=== PATIENT | male | born 1970 | race Caucasian/White ===

== ENCOUNTER 2017-02-23 12:17 | Inpatient (IN) | payer BC ==
[2017-02-23] MEDS ORDERED: RX INFO: IV CONTRAST WAS GIVEN 1 EACH MISC MISCELLANE PRN (14:56)
[2017-02-23 15:46] LABS: Basophils # (A) 0.1 k/uL (0-0.2); Basophils % (A) 0 %; CH 34.7; CHCM 35.1; Eosinophils # (A) 0.1 k/uL (0-0.7); Eosinophils % (A) 0 %; HCT 50.5 % (39.0-53.0); HDW 2.13; HGB 16.8 gm/dL (13.0-17.5); Luc # (Auto) 0.15; Luc % (Auto) 1; Lymphocytes # (A) 1.2 k/uL (1.0-4.8); Lymphocytes % (A) 6 %; MCHC 33.3 g/dL (31.0-37.0); MCV 99.3 fL (80.0-100.0); Mean Platelet Volume 7.5; Monocytes # (A) 0.9 k/uL (0-1.0); Monocytes % (A) 5 %; Neutrophils # (A) 17.7 k/uL (1.3-7.7); Neutrophils % (A) 88 %; RBC 5.09 m/uL (4.30-5.90); RDW 13.7 % (11.5-15.5); WBC (Perox) 19.79
[2017-02-23] MEDS ORDERED: methylPREDNISolone SOD SUCCI 125 MG/2 ML VIAL IV STA (15:47)
[2017-02-23 16:12] LABS: ALT 40 U/L (21-72); AST 18 U/L (17-59); Alkaline Phosphatase 56 U/L (38-126); Anion Gap 12 mmol/L; Blood Urea Nitrogen 15 mg/dL (9-20); Calcium 10.3 mg/dL (8.4-10.2); Carbon Dioxide 29 mmol/L (22-30); Chloride 102 mmol/L (98-107); Glucose 150 mg/dL (74-99); Non-African American GFR(MDRD) >60 (>60 ml/min/1.73 sqM); Potassium 3.7 mmol/L (3.5-5.1); Sodium 143 mmol/L (137-145); Total Bilirubin 0.8 mg/dL (0.2-1.3); Total Protein 6.5 g/dL (6.3-8.2)
[2017-02-23] MEDS: IPRATROPIUM-ALBUTEROL 3 ML NEB INHALATION SCH ×2 (16:28→20:38)
--- NOTE | 2017-02-23 17:25 | CT ---
EXAMINATION TYPE: CT chest angio for PE DATE OF EXAM: 02/23/2017 COMPARISON: NONE HISTORY: Shortness of breath. CT DLP: 318.30 mGycm. Automated exposure control for dose reduction was used. CONTRAST: CT Chest for pulmonary embolism performed with with IV Contrast, patient injected with 82 m L of Omnipaque 350. FINDINGS: LUNGS: The lungs are grossly clear, there is no concerning parenchymal mass or nodule identified. T here is no pleural effusion or pneumothorax seen. The tracheobronchial tree is patent. MEDIASTINUM: There is satisfactory enhancement of the pulmonary artery and its branches, there is no CT evidence for pulmonary embolism. There are no greater than 1 cm hilar or mediastinal lymph nodes. No pericardial effusion is seen. OTHER: No focal skeletal findings. Note is made of prominent gastric distention, etiology unclear. IMPRESSION: 1. NEGATIVE FOR PULMONARY EMBOLISM OR OTHER ACUTE CHEST PROCESS. 2. PROMINENT GASTRIC DISTENTION NOTED, ETIOLOGY UNCLEAR.
[2017-02-23] MEDS: NICOTINE 21MG/24HR PATCH TRANSDERM SCH (18:25)
[2017-02-23] MEDS: BUDESONIDE 1 MG/2 ML NEBU INHALATION SCH (20:38)
[2017-02-23] MEDS: ALPRAZolam 0.5 MG TAB PO SCH (21:55)
[2017-02-23] MEDS: AZITHROMYCIN 500 MG in SODIUM CHLORIDE 0.9% 250 ML IVPB SCH (21:56)
[2017-02-23] MEDS: methylPREDNISolone SOD SUCCI 125 MG/2 ML VIAL IV SCH (23:32)
[2017-02-24] MEDS: methylPREDNISolone SOD SUCCI 125 MG/2 ML VIAL IV SCH ×4 (06:12→23:03)
[2017-02-24] MEDS: IPRATROPIUM-ALBUTEROL 3 ML NEB INHALATION SCH ×4 (07:03→21:53)
[2017-02-24] MEDS: BUDESONIDE 1 MG/2 ML NEBU INHALATION SCH ×2 (07:03→21:53)
[2017-02-24] MEDS: ALPRAZolam 0.5 MG TAB PO SCH ×2 (08:21→20:37)
[2017-02-24] MEDS: MULTIVITAMINS, THERA 1 EACH TAB PO SCH (08:21)
[2017-02-24] MEDS: CYANOCOBALAMIN 500 MCG TAB PO SCH (08:22)
[2017-02-24] MEDS: VITAMIN A 10,000 UNIT CAPSULE PO SCH (08:22)
[2017-02-24 08:29] LABS: ALT 34 U/L (21-72); AST 19 U/L (17-59); Alkaline Phosphatase 78 U/L (38-126); Anion Gap 12 mmol/L; Blood Urea Nitrogen 16 mg/dL (9-20); Calcium 9.6 mg/dL (8.4-10.2); Carbon Dioxide 21 mmol/L (22-30); Chloride 104 mmol/L (98-107); Glucose 286 mg/dL (74-99); Non-African American GFR(MDRD) >60 (>60 ml/min/1.73 sqM); Potassium 4.3 mmol/L (3.5-5.1); Sodium 137 mmol/L (137-145); Total Bilirubin 0.4 mg/dL (0.2-1.3); Total Protein 6.1 g/dL (6.3-8.2)
[2017-02-24] MEDS: NICOTINE 21MG/24HR PATCH TRANSDERM SCH (09:46)
[2017-02-24 17:21] LABS: Glucose,Whole Blood 188 mg/dL (75-99)
[2017-02-24] MEDS: INSULIN LISPRO (humaLOG) 300 UNIT/3 ML VIAL SQ SCH ×2 (18:20→20:37)
[2017-02-24] MEDS: AZITHROMYCIN 500 MG in SODIUM CHLORIDE 0.9% 250 ML IVPB SCH (20:06)
[2017-02-24 20:16] LABS: Glucose,Whole Blood 184 mg/dL (75-99)
[2017-02-25] MEDS: methylPREDNISolone SOD SUCCI 125 MG/2 ML VIAL IV SCH ×4 (05:11→23:23)
--- NOTE | 2017-02-25 06:48 | HP ---
CHIEF COMPLAINT: Persistent shortness of breath now going on 3 weeks. This is a 46-year-old white male with well known established bronchial asthma that was admitted from my office after persistent encouraging for hospitalization with his asthma. He has been going on nearly 3 weeks with persistent intermittent shortness of breath before being admitted. He has a long-standing history of bronchial asthma. He has been treated on an outpatient basis with prednisone. He has been on 30 mg daily. He has been on updrafts of Combivent inhalers. He was on Levaquin at one period of time when he was having purulent tracheobronchitis now it is just a nonspecific clear to year phlegm. He has a longstanding past medical history of bronchial asthma. He has also had some BPH and anxiety neurosis. SOCIAL HISTORY: He is , lives with his and he has 2 daughters. He is unemployed at this period of time. Cigarette smoker up to 2 packs a day over 30 years. Alcohol occasionally. He does use recreational marijuana. His home medications have been that of: 1. Xanax 0.5 b.i.d. 2. Combivent inhaler 2 puffs up to 4 times a day. 3. Alupent updrafts up to 4 times a day. 4. Flovent inhaler 2 puffs in the morning 5. Flomax 0.4 mg daily. REVIEW OF SYSTEMS: CARDIOPULMONARY: He has been short of breath, coughs persistently over a 3- week period of time. He has had no chest pain. He has no orthopnea or paroxysmal nocturnal dyspnea. Persistent cough. He has been treated on outpatient basis for an antibiotic. GI: No hematemesis, melena, hematochezia. : He has had BPH, but he has responded well. NEUROMUSCULAR: Just weakness in his legs. PHYSICAL EXAMINATION: At this time, he has got blood pressure 145/85. His O2 sat was 92 in my office on room air. His temperature was 98.4. Weight 182 pounds on admission and his respiratory rate was 23. EYES: Pupils were equal, round and reactive to light and accommodation. ENT showed tympanic membranes and pharynx to be negative. Neck is supple with midline trachea. Chest has decreased breath sounds and wheezes throughout. Minimal amount of rhonchi. No rales. HEART: Sinus rhythm with no murmur. ABDOMEN: Soft, nontender with no organomegaly. Negative Ulises sign. EXTREMITIES: Has got some stasis dermatitis in his lower legs. He has got decreased skin turgor. Lower extremities has decreased pulses in the lower extremities. Good range of motion of knees and hips at this period of time. LAB WORK: Upon admission showed a WBC count 20,000 and 16.8 hemoglobin. He has a creatinine of 1 and a BUN of 15. Potassium 3.7 and 143 sodium. ASSESSMENT: 1. Persistent continuous asthma, acute on chronic. 2. Tracheobronchitis. 3. Benign prostatic hypertrophy. 4. Anxiety neurosis. 5. Persistent cigarette abuser. PLAN: Put him in the hospital, put him on IV antibiotics, put him on IV steroids, updrafts and consultation with Pulmonology. His long-term prognosis because he continues to smoke is guarded. TEQUILA
--- NOTE | 2017-02-25 07:07 | PN ---
A 46-year-old white male that came in with extreme shortness of breath times 3 weeks, acute on chronic exacerbation of bronchial asthma treated with steroids, updrafts, antibiotics without any steroid inhalers without any improvement. I finally talked the patient in to coming into the hospital accordingly. His O2 sats were very low in the 90%. Patient was becoming very exhausted. At this period of time, he just went through 125 mg of Solu-Medrol followed by 80 q.8 x24 hours and has had some improvement and he is also on DuoNeb inhaler, Pulmicort and is being seen by Pulmonology, Dr. Taylor also. His CAT scan of the lung was also completed, which showed no evidence of pulmonary emboli. At this time, his vital signs are stable with a blood pressure 127/60, heart rate is in the 80s, respiratory rate is 18, temperature 97.8. There is no new lab today on this gentleman and medications were unchanged. His review of systems: CARDIOPULMONARY: Still has some wheeze and some shortness of breath. He does have some cough he said, but it is minimally productive. No orthopnea, no paroxysmal nocturnal dyspnea. GI: No hematemesis, melena or hematochezia. No constipation and no diarrhea and no abdominal pain. : He has normal urination as long as he is taking his Flomax. NEUROMUSCULAR: He has got weakness in his legs and his arms, but he said that is just from his extreme fatigue. INTEGUMENTARY: He just has some discoloration in his lower legs. He states he has some varicose veins. PHYSICAL EXAMINATION: Blood pressure 127/60, heart rate is between 80 and 94. Temperature is 97.8. EYES: Pupils are equal, round and reactive to light and accommodation. ENT showed tympanic membranes and pharynx to be negative. Neck is supple with midline trachea. No JVD. Chest has some decreased breath sounds and wheezes throughout. Minimal amount of rhonchi, but much less labored breathing. Heart is sinus rhythm with no murmur. ABDOMEN: Soft, nontender with no organomegaly. If you look at the extremities, he does have some clubbing in distal hands and feet. Good palpable lower extremity pulses Lab work for mycoplasma Legionella cultures are not back yet. No new lab. Microbiology is noncontributory at this time. ASSESSMENT: 1. Acute onset of severe bronchial asthma, resistant, acute on chronic. 2. History of benign prostatic hypertrophy. 3. History of tracheobronchitis. 4. Pulmonary emboli ruled out. 5. Chronic cigarette smoking abuse equal to 2 packs a day. PLAN: Will continue him on the 80 of Solu-Medrol. I am going to continue him on azithromycin. Will continue on antibiotics, Pulmicort. Please refer to my orders. Prognosis guarded. MTDD
[2017-02-25] MEDS: IPRATROPIUM-ALBUTEROL 3 ML NEB INHALATION SCH ×5 (07:50→19:49)
[2017-02-25] MEDS: BUDESONIDE 1 MG/2 ML NEBU INHALATION SCH ×2 (07:50→19:51)
[2017-02-25 08:14] LABS: Glucose,Whole Blood 124 mg/dL (75-99)
[2017-02-25 08:16] LABS: ALT 37 U/L (21-72); AST 17 U/L (17-59); Alkaline Phosphatase 52 U/L (38-126); Anion Gap 9 mmol/L; Blood Urea Nitrogen 25 mg/dL (9-20); Calcium 9.4 mg/dL (8.4-10.2); Carbon Dioxide 23 mmol/L (22-30); Chloride 106 mmol/L (98-107); Glucose 106 mg/dL (74-99); Non-African American GFR(MDRD) 58 (>60 ml/min/1.73 sqM); Potassium 4.7 mmol/L (3.5-5.1); Sodium 138 mmol/L (137-145); Total Bilirubin 0.3 mg/dL (0.2-1.3); Total Protein 6.1 g/dL (6.3-8.2)
[2017-02-25] MEDS: INSULIN LISPRO (humaLOG) 300 UNIT/3 ML VIAL SQ SCH ×4 (09:39→21:15)
[2017-02-25] MEDS: NICOTINE 21MG/24HR PATCH TRANSDERM SCH (09:43)
[2017-02-25] MEDS: VITAMIN A 10,000 UNIT CAPSULE PO SCH (09:43)
[2017-02-25] MEDS: MULTIVITAMINS, THERA 1 EACH TAB PO SCH (09:43)
[2017-02-25] MEDS: CYANOCOBALAMIN 500 MCG TAB PO SCH (09:43)
[2017-02-25] MEDS: PANTOPRAZOLE 40 MG TABLET PO SCH (09:43)
[2017-02-25] MEDS: ALPRAZolam 0.5 MG TAB PO SCH ×2 (09:46→21:14)
--- NOTE | 2017-02-25 09:46 | P.PN ---
Subjective Principal diagnosis: Acute asthma exacerbation Patient seen and evaluated examined on fifth floor he is breathing relatively comfortably still have cough congestion and shortness of breath severity or wheezing has improved though he remains on breathing treatment and steroids Objective - Vital Signs Vital signs: Vital Signs Temp 97.8 F 02/25/17 07:00 Pulse 91 02/25/17 08:04 Resp 16 02/25/17 07:00 BP 117/81 02/25/17 07:00 Pulse Ox 96 02/25/17 07:50 Intake & Output 02/24/17 02/25/17 02/25/17 18:59 06:59 18:59 Intake Total 500 Balance 500 Weight 81 kg Intake: IV 250 Azithromycin 500 mg In 250 Sodium Chloride 0.9% 250 ml @ 125 mls/hr IVPB [facility] Rx#:[id number] Intake, IV Titration 250 Amount Azithromycin 500 mg In 250 Sodium Chloride 0.9% 250 ml @ 125 mls/hr IVPB [facility] Rx#:[id number] Other: Voiding Method Toilet Toilet # Voids 3 1 - Constitutional General appearance: Present: average body habitus, no acute distress - EENT Eyes: Present: EOMI, PERRLA, normal appearance ENT: Present: hearing grossly normal, normal oropharynx Ears: bilateral: normal - Neck Neck: Present: normal ROM Carotids: bilateral: upstroke normal, bruit absent Thyroid: bilateral: normal size - Respiratory Respiratory: bilateral: rhonchi, wheezing (Present border respiratory expiratory phase), prolonged expiration - Cardiovascular Rhythm: regular Heart sounds: normal: S1, S2 - Gastrointestinal General gastrointestinal: Present: normal bowel sounds, soft - Neurologic Neurologic: Present: CNII-XII intact - Musculoskeletal Musculoskeletal: Present: gait normal, strength equal bilaterally - Psychiatric Psychiatric: Present: A&O x's 3, appropriate affect, intact judgment & insight - Labs CBC & Chem 7: 02/23/17 15:27 02/25/17 07:27 Labs: Abnormal Lab Results - Last 24 Hours (Table) 02/24/17 02/24/17 02/25/17 Range/Units 17:19 20:14 07:27 BUN 25 H (9-20) mg/dL Creatinine 1.31 H (0.66-1.25) mg/dL Glucose 106 H (74-99) mg/dL POC Glucose (mg/dL) 188 H 184 H (75-99) mg/dL Total Protein 6.1 L (6.3-8.2) g/dL 02/25/17 Range/Units 07:46 BUN (9-20) mg/dL Creatinine (0.66-1.25) mg/dL Glucose (74-99) mg/dL POC Glucose (mg/dL) 124 H (75-99) mg/dL Total Protein (6.3-8.2) g/dL - Imaging and Cardiology CT scan - chest: report reviewed, image reviewed (No pulmonary embolism is seen , note is made of gastric distention, no mediastinal lymphadenopathy or hilar lymphadenopathy was seen) Assessment and Plan Plan: Acute asthma exacerbation. Associated acute COPD exacerbation cannot be excluded Chronic persistent asthma severe Baseline COPD with history of extensive smoking and nicotine use Purulent tracheobronchitis likely related to acute asthma Overall plan is to continue IV steroids breathing treatments and Antibiotics patient will likely require more extensive workup on outpatient setting once he stabilized Time with Patient: Greater than 30
--- NOTE | 2017-02-25 11:44 | XR ---
EXAMINATION TYPE: XR chest 2V DATE OF EXAM: 02/25/2017 CLINICAL HISTORY: Difficulty breathing TECHNIQUE: Frontal and lateral views of the chest are obtained. COMPARISON: 10/19/2013 FINDINGS: There is no focal air space opacity, pleural effusion, or pneumothorax seen. The cardiac silhouette size is within normal limits. The osseous structures are intact. IMPRESSION: No acute cardiopulmonary process.
[2017-02-25 12:09] LABS: Glucose,Whole Blood 147 mg/dL (75-99)
--- NOTE | 2017-02-25 12:14 | ECHOF ---
Referral Reason:r.o pulmonary hypertension or pericarditis MEASUREMENTS -------- HEIGHT: 170.2 cm WEIGHT: 80.7 kg BP: 130/60 RVIDd: 2.5 cm (< 3.3) IVSd: 1.1 cm (0.6 - 1.1) LVIDd: 4.8 cm (3.9 - 5.3) LVPWd: 1.1 cm (0.6 - 1.1) IVSs: 1.3 cm LVIDs: 3.1 cm LVPWs: 1.6 cm LA Diam: 2.7 cm (2.7 - 3.8) LAESV Index (A-L): 16.40 ml/m Ao Diam: 3.1 cm (2.0 - 3.7) AV Cusp: 1.6 cm (1.5 - 2.6) LA Diam: 3.2 cm (2.7 - 3.8) MV EXCURSION: 17.007 mm (> 18.000) MV EF SLOPE: 93 mm/s (70 - 150) EPSS: 0.3 cm RAP: 5.00 mmHg RVSP: 25.10 mmHg FINDINGS -------- Sinus rhythm. This was a technically adequate study. There is mild concentric left ventricular hypertrophy. Overall left ventricular systolic function is normal with, an EF between 55 - 60 %. The right ventricle is normal in size. The left atrial size is normal. Normal LA size by volume 22+/-6 ml/m2. The right atrial size is normal. There is mild aortic valve sclerosis. There is no evidence of aortic regurgitation. Mild mitral annular calcification present. Mild mitral regurgitation is present. Mild tricuspid regurgitation present. There is no evidence of pulmonary hypertension. The right ventricular systolic pressure, as measured by Doppler, is 25.10mmHg. There is no pulmonic regurgitation present. There is no pericardial effusion. CONCLUSIONS -------- 1. There is mild concentric left ventricular hypertrophy. 2. Overall left ventricular systolic function is normal with, an EF between 55 - 60 %. 3. There is mild aortic valve sclerosis. 4. Mild mitral annular calcification present. 5. Mild mitral regurgitation is present. 6. Mild tricuspid regurgitation present. 7. There is no evidence of pulmonary hypertension. 8. The right ventricular systolic pressure, as measured by Doppler, is 25.10mmHg. 9. There is no pulmonic regurgitation present. GENETIC ENGINEER: Lizett Frye RDCS
[2017-02-25] MEDS: SODIUM CHLORIDE 0.9% 1,000 ML IV SCH ×2 (14:16→23:28)
[2017-02-25 17:19] LABS: Glucose,Whole Blood 139 mg/dL (75-99)
--- NOTE | 2017-02-25 18:31 | PN ---
This is a 46-year-old white male who came in with extreme shortness of breath that had been going on for 3 weeks ( ) acute on chronic exacerbation of bronchial asthma, treated with steroids, updrafts, antibiotics and inhalers on an outpatient basis without improvement. He finally conceded to coming to the hospital. His oxygen had in the low 90s but worst of all he was becoming exhausted ( ) period of time he just went through initial Solu-Medrol 125 mg given ( ) q.8 x48 hours with some improvement. Today he is breathing better and he is also being seen by Dr. Taylor, pharmacist. His CT scan of the lung was also completed for negative pulmonary emboli. Today he is having some chest pain with inspiration in the left lower lobe. He still has a fair amount of shortness of breath. REVIEW OF SYSTEMS AT THIS TIME: Cardiopulmonary shows shortness of breath, but much less. Some pain on inspiration on the the left lung. He does have some cough which is minimally productive. No orthopnea. No paroxysmal nocturnal dyspnea. GI: No hematemesis, melena, hematochezia, constipation. No diarrhea. No abdominal pain. : ( ) he is on Flomax. NEUROMUSCULAR: He has weakness in his left arm and left leg, but he said that is from extreme fatigue. INTEGUMENTARY: He just has some discoloration in his lower leg. SOCIAL HISTORY: He is a smoker greater than 2 packs a day. Alcohol occasionally. Occasional recreational use of marijuana, which he says he takes for his asthma; I debated the issue with him. Vitals signs at this period of time are blood pressure 117/81, heart rate 69, temperature 97.8, respiratory rate between 18 and 22. At this point his oxygen saturation is 96%. EYES: Pupils are equal, round and reactive to light and accommodation. ENT shows tympanic membranes and pharynx to be negative. Neck is supple with midline trachea. Chest has wheezes throughout. HEART: Sinus rhythm. No murmur. ABDOMEN: Soft, non-tender. No organomegaly. Lower extremities have good palpable pulses, good range of motion. He does have some clubbing in his hands, discoloration in integument of his lower legs. He did have some pain with inspiration in his left lower lung; no pleural rub was heard at this time. LABORATORY TODAY: Creatinine slightly elevated at 1.3 with BUN of 25. The rest of the chem-17 is within normal limits. Microbiology was completed. I&O show decrease in urine output. He also has some GE distress from his Zithromax. ASSESSMENT: 1. Bronchial asthma, acute exacerbation. Associated COPD cannot be ruled out. 2. Asthma categorized persistent. 3. Asthma, severe. 4. Tracheobronchitis. 5. Cigarette and nicotine abuse. PLAN: Decrease his Solu-Medrol to 60 q.6. Continue his antibiotics. Continue the rest of his medication. Will do a chest x-ray of the lung and also an echocardiogram just to rule out pulmonary hypertension and pericarditis. He is stable. Please refer to my orders. ERROLD
[2017-02-25 20:27] LABS: Glucose,Whole Blood 180 mg/dL (75-99)
[2017-02-25] MEDS: AZITHROMYCIN 500 MG TAB PO SCH (21:14)
[2017-02-26 04:51] LABS: Mycoplasma IgG Antibody (EIA) 0.62 INDEX (<=0.90); Mycoplasma IgM Antibody 0.71 INDEX (<=0.90)
[2017-02-26] MEDS: methylPREDNISolone SOD SUCCI 125 MG/2 ML VIAL IV SCH (05:26)
[2017-02-26 07:34] LABS: Glucose,Whole Blood 123 mg/dL (75-99)
[2017-02-26] MEDS: IPRATROPIUM-ALBUTEROL 3 ML NEB INHALATION SCH ×4 (07:52→19:19)
[2017-02-26] MEDS: BUDESONIDE 1 MG/2 ML NEBU INHALATION SCH ×2 (07:53→19:11)
[2017-02-26] MEDS: INSULIN LISPRO (humaLOG) 300 UNIT/3 ML VIAL SQ SCH ×4 (07:53→21:39)
[2017-02-26] MEDS: VITAMIN A 10,000 UNIT CAPSULE PO SCH (08:17)
[2017-02-26] MEDS: MULTIVITAMINS, THERA 1 EACH TAB PO SCH (08:17)
[2017-02-26] MEDS: PANTOPRAZOLE 40 MG TABLET PO SCH (08:19)
[2017-02-26] MEDS: ALPRAZolam 0.5 MG TAB PO SCH ×2 (08:19→21:38)
[2017-02-26] MEDS: CYANOCOBALAMIN 500 MCG TAB PO SCH (08:19)
[2017-02-26] MEDS: NICOTINE 21MG/24HR PATCH TRANSDERM SCH (08:20)
[2017-02-26 08:32] LABS: ALT 44 U/L (21-72); AST 19 U/L (17-59); Alkaline Phosphatase 41 U/L (38-126); Anion Gap 7 mmol/L; Blood Urea Nitrogen 20 mg/dL (9-20); Calcium 9.1 mg/dL (8.4-10.2); Carbon Dioxide 23 mmol/L (22-30); Chloride 106 mmol/L (98-107); Glucose 118 mg/dL (74-99); Non-African American GFR(MDRD) >60 (>60 ml/min/1.73 sqM); Potassium 4.7 mmol/L (3.5-5.1); Sodium 136 mmol/L (137-145); Total Bilirubin 0.3 mg/dL (0.2-1.3); Total Protein 5.7 g/dL (6.3-8.2)
[2017-02-26 11:48] LABS: Glucose,Whole Blood 133 mg/dL (75-99)
[2017-02-26 14:40] VITALS: TEMP 97.9
[2017-02-26 17:07] LABS: Glucose,Whole Blood 114 mg/dL (75-99)
[2017-02-26] MEDS: methylPREDNISolone SOD SUCCI 40 MG/ML 1 ML VIAL IV SCH (17:40)
[2017-02-26] MEDS: SODIUM CHLORIDE 0.9% 1,000 ML IV SCH ×2 (19:41→21:38)
--- NOTE | 2017-02-26 19:57 | PN ---
46 -year-old white male that came in with extreme shortness of breath that had been going on for about three weeks, had acute exacerbation of asthma and tracheobronchitis. He had been on steroids, updrafts, and antibiotics on an outpatient basis without improvement. He finally conceded to come to the hospital. His oxygen level, O2 sats were in the low 90s. At that time, he was started on Solu-Medrol 125 mg and then 80 mg q8h. Today he is feeling better. His CT scan of the lung was negative for pulmonary emboli. His echocardiogram for shortness of breath was negative. He has less pleuritic pain than he had previously. Review of systems: Cardiopulmonary: Shortness of breath is much less. He still has a minimal amount of pain with inspiration left lung. He does have cough. Minimal productive. No orthopnea. No paroxysmal nocturnal dyspnea. GI: No hematemesis, melena or hematochezia, constipation or diarrhea. : The patient has BPH, he is on Flomax. ( ). Neuromuscular: Weakness in left arm and left leg with some fatigue. Integumentary: Normal. Social history: Greater than two packs a day cigarette smoking. Occasional alcohol. He does use recreational marijuana. PHYSICAL EXAMINATION: Vital signs: Blood pressure 128/80. Pulse rate is 66. Respiratory rate is 18. Temperature 97.7. Eyes: Pupils are equal, round and reactive to light and accommodation. ENT: Tympanic membranes and pharynx to be negative. Neck is supple with midline trachea. Chest is essentially clear to auscultation but decreased breath sounds. Heart is sinus rhythm with no murmur. Abdomen soft, nontender with no organomegaly. Extremities are basically within normal limits. ASSESSMENT: 1. Acute bronchial asthma in a cigarette smoker greater than 30 years. 2. Early chronic obstructive pulmonary disease changes with emphysema. 3. Tracheobronchitis. PLAN: We will decrease the Solu Medrol to 40 mg, continue IV antibiotics. If he continues to improve, he will be discharged in the a.m. MTDD
[2017-02-26 20:12] LABS: Glucose,Whole Blood 105 mg/dL (75-99)
[2017-02-26] MEDS: AZITHROMYCIN 500 MG TAB PO SCH (21:38)
[2017-02-27] MEDS: methylPREDNISolone SOD SUCCI 40 MG/ML 1 ML VIAL IV SCH ×2 (00:34→07:28)
[2017-02-27] MEDS: SODIUM CHLORIDE 0.9% 1,000 ML IV SCH (05:36)
[2017-02-27] MEDS: PANTOPRAZOLE 40 MG TABLET PO SCH (07:27)
[2017-02-27 07:28] LABS: Glucose,Whole Blood 113 mg/dL (75-99)
[2017-02-27] MEDS: INSULIN LISPRO (humaLOG) 300 UNIT/3 ML VIAL SQ SCH (07:31)
[2017-02-27] MEDS: MULTIVITAMINS, THERA 1 EACH TAB PO SCH (07:34)
[2017-02-27] MEDS: NICOTINE 21MG/24HR PATCH TRANSDERM SCH (07:34)
[2017-02-27] MEDS: ALPRAZolam 0.5 MG TAB PO SCH (07:34)
[2017-02-27] MEDS: CYANOCOBALAMIN 500 MCG TAB PO SCH (07:34)
[2017-02-27] MEDS: VITAMIN A 10,000 UNIT CAPSULE PO SCH (07:35)
[2017-02-27] MEDS: IPRATROPIUM-ALBUTEROL 3 ML NEB INHALATION SCH ×2 (07:59→11:17)
[2017-02-27] MEDS: BUDESONIDE 1 MG/2 ML NEBU INHALATION SCH (07:59)
[2017-02-27 08:37] VITALS: BP 138/92; PULSE 74; RESP 16
--- NOTE | 2017-02-27 21:57 | PN ---
DATE OF SERVICE: 02/26/2017 This is a 46-year-old male seen, evaluated and examined during the rounds. He still has shortness of breath and cough but severity has improved. The patient has been ambulating. Does get short of breath with activity and exertion. His severity of shortness of breath and wheezing has improved. He remains on steroids and breathing treatments which are being tapered down. His last set of vitals include: Blood pressure is 133/87, respiratory rate 16- 18, heart rate 80, temperature 97, saturation 98% on room air. HEENT: Atraumatic, normocephalic. Pharynx is clear. Nasopharyngeal opening is present. NECK: Supple without lymphadenopathy, jugular venous distention or carotid bruit. LUNGS: Bilateral good air entry is present. There is very fine rhonchi on forced expiration. HEART: Regular rate and rhythm, S1/S2 audible. ABDOMEN: Soft. No rebound or rigidity. EXTREMITIES; +1 pedal pulses. NEUROLOGIC: Awake and alert. No focal neurological deficit. Chest x-ray performed 02/25/2017 reviewed and compared with the prior x-ray. His sugars is 113. Previous laboratory data reviewed as well. IMPRESSION: 1. Acute asthma. 2. Chronic persistent asthma, severe category. 3. Chronic obstructive pulmonary disease. 4. Purulent tracheobronchitis. PLAN: Continue breathing treatment, continue steroids, continue supportive care , taper down the steroids, noted leukocytosis and likely related to steroids as well as ongoing inflammatory process. Other issues include: 1. 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 Would recommend to monitor and observe closely. 2. Hyperglycemia. May very well be related to steroids. Will recommend follow up in outpatient setting. Will follow. TEQUILA
--- NOTE | 2017-03-01 11:11 | DS ---
DATE OF ADMISSION: 02/23/2017 PRINCIPAL DIAGNOSES ON DISCHARGE: 1. Severe persistent continue with asthma, acute on chronic. 2. Tracheobronchitis. 3. Benign prostatic hypertrophy. 4. Anxiety neurosis. 5. Persistent cigarette smoker. This is a 46-year-old white male with known bronchial asthma who was admitted after having persistent encouraging for hospitalization for his asthma, starting 3 weeks ago and finally admitted to come in with extreme fatigue and was placed in the hospital accordingly and initially his O2 sats were in the low 90s and started on O2 at 2 L. He was started on IV Solu-Medrol at 125 mg and then converted over to 80 mg daily for several days. He was on Levaquin on an outpatient basis and at that situation he had been switched over here to Biaxin for his purulent tracheobronchitis. He had a longstanding history of bronchial asthma and BPH and anxiety in the past and social history is that he lives with his and 2 daughters. He is unemployed. At this period of time , he cigarette smokes up to 2 packs a day over 30 years. He is trying hard to stop but at this point, pretty much spinning his wheels. Alcoholic occasionally. Does use recreation ( ). REVIEW OF SYSTEMS: CARDIOPULMONARY: No shortness of breath, no chest pain. He did have some shortness of breath at nighttime last night and was very minimal for a very short period of time, resolved with updrafts. No paroxysmal nocturnal dyspnea, no persistent cough. GI: No hematemesis, melena, hematochezia. No nausea, no vomiting. At this period of time he is on Protonix. : He has BPH but he has been urinating well. NEUROMUSCULAR: Just weakness in his legs but this is from inactivity. Lab work upon discharge: There is nothing new. His last electrolytes on 02/26. Sodium 136, 4.7 potassium. Creatinine, BUN are within normal limits. His microbiology was negative. His IGM for mycoplasma pneumonia was negative and his legionella and his urine was also negative. His initial WBC was 20,000 with a hemoglobin of 16.8. He had elevated neutrophils which was comparable with his being on steroids and his chest x-ray initially done on the showed no acute process. Dr. Taylor followed with him accordingly. An echocardiogram was completed on him just because of his persistent shortness of breath and because of longstanding asthma to rule out pulmonary hypertension and his ejection fraction is between 50% and 60%. There is no evidence of pulmonary hypertension. MEDICATIONS: He is being discharged home on: 1. DuoNeb inhaler a unit dose up to 4 times a day. 2. Twice a day with Xanax 0.5. 3. Zithromax 500 daily. 4. Pulmicort this is discontinued. 5. Cyanocobalamin is continued. 6. His insulin has been discontinued. 7. He will continue with his Flovent inhaler 2 puffs 4 times a day. 8. Albuterol inhaler p.r.n. 9 Prednisone, he is going to be on 40 mg a day, discontinued his patch. 10. His Protonix is 40 mg a day of which we wrote him a script for 2. He will follow up with me within a week. He is continue to stop smoking. Please refer to my orders. Prognosis is good. MTDD
== END 2017-02-27 11:40 | disposition home or self-care (01) | DRG 203 ==
LOC: 5MS5E 14:33
PROVIDERS: ADMIT Family Medicine; ATTEND Family Medicine
DX: J45.51 Severe persistent asthma with (acute) exacerbation (principal); F41.1 Generalized anxiety disorder; F17.210 Nicotine dependence, cigarettes, uncomplicated; F12.90 Cannabis use, unspecified, uncomplicated; I83.90 Asymptomatic varicose veins of unspecified lower extremity; N40.0 Benign prostatic hyperplasia without lower urinary tract symptoms; Z79.51 Long term (current) use of inhaled steroids
CPT/HCPCS: 71020; 71275; 80053; 85025; 85379; 86738; 87449; 93306; 94640; 94760